=== PATIENT | female | born 1960 | race Caucasian/White ===

== ENCOUNTER 2024-12-21 10:11 | Outpatient (AMB) | payer BC, SELFPAY ==
--- NOTE | 2024-12-21 10:15 | MHC.OFFVIS ---
Intake Visit Reasons: 3m follow up Allergies No Known Allergies Allergy (Verified 11/07/24 06:03) Medication List - Last Reconciled 12/21/24 by Rosa Hendrickson MD clonazepam 0.5 mg PO DAILY hydrochlorothiazide 25 mg PO DAILY propranolol ER 60 mg PO BID semaglutide (weight loss) (Wegovy) mg subcut QWEEK HPI Comments Details: 64 years old woman with tremor. She is presenting with concerns about her worsening benign essential tremor. The tremor, which previously improved significantly with Inderal (propranolol), has increased in severity and distribution to involve her shoulders and hands once again. Switched to propranolol ER and metoprolol, these medications have not provided relief, resulting in worsened tremor control. Additional history reveals frequent headaches correlated with medication changes. She has experienced a notable rise in anxiety, likely exacerbated by her awareness of the tremor. The patient notes significant impacts on her professional responsibilities that require focused attention and mental acuity. Previously, trials with clonazepam and other anxiolytics provided minimal relief but with undesirable cognitive side effects. Her frustration extends to the insurance-driven discontinuation of Wegovy for weight management, complicating her obesity treatment. [facility] Medical History (Updated 12/21/24 @ 10:21 by Rosa Hendrickson MD) Cervical dystonia Benign essential tremor Review of Systems Const Details: - Musculoskeletal: Reports worsening tremor in hands and shoulders. - Neurological: Reports headaches. - Psychiatric: Reports increased anxiety. - Endocrine: Reports weight gain. Physical Exam Neuro Other: Mental Status: Alert and oriented to person, place, and time. Normal attention. Normal spontaneous speech, fluency, and comprehension. No obvious issues with mood and memory. Affect is appropriate. Cranial Nerves: CN II: Visual carroll full to confrontation, visual acuity intact. CN III, IV, : Pupils equal, round, reactive to light and accommodation. Extraocular movements are normal. CN V: Facial sensation is normal. CN VII: Facial movements symmetrical. CN VIII: Hearing intact to bedside conversation is normal. CN IX, X: Palate elevates symmetrically. CN XI: Shoulder shrug and head turn symmetrical. CN XII: Tongue midline without atrophy or fasciculations. Moderate head tremor and mild bilateral hand tremor. Speech: Normal; no dysarthria or tremor. Assessment & Plan Assessment & Plan (1) Benign essential tremor: Comment: Meds tried: Inderal, clonazepam, propranolol, metoprolol, topiramate Code(s): G25.0 - Essential tremor Category: Medical Plan Impression: Benign essential tremor Recommendations: . Propranolol extended-release 60 mg twice a day . Will try getting Inderal 60mg LA bid . If not, may try clonazepam at night again During the consultation, I discussed the patient?s tremor management, emphasizing a return to Inderal given its superior effectiveness. Despite insurance hurdles, we have submitted a request to resume this medication. We also reviewed the potential inclusion of clonazepam if necessary, with its benefits and autonomy in tremor control, although cognitive risks were thoroughly considered. Various less effective medications were reviewed and documented, making them necessary to challenge the insurer for appropriate therapy. Expectation and caution surrounding cognitive impairment with clonazepam, especially given occupational demands, were highlighted. The discussions extended to secondary problems of headaches and anxiety, primarily focusing on holistic tremor management. Anxiety management would be considered through improved symptom control. Regarding obesity, the constraints imposed by Wegovy termination were addressed, with a focus on lifestyle modifications. Procedural Botox injection options were mentioned, with the benefit of local arrangements as opposed to distant interventions. Follow-ups were affirmed, with a return appointment scheduled in three months. Medications: New propranolol ER (Inderal LA) 60 mg PO BID 180 caps 1RF Coding Level of Care Code Est Pt Level 4 (48422) Diagnoses Benign essential tremor G25.0
--- OUTSIDE RECORDS SUMMARY | 2024-12-21 12:26 | XMS_ITS | Clinical Summary ---
Author Organization [facility] Address [address] [place] [address] Phone Care Team Providers Care Call Center Analyst Name Role Phone Leonora Kay NP Primary Care Provider [phone] Allergies No known active allergies Medications propranolol (INDERAL) 60 MG immediate release tablet Take 60 mg by mouth 2 (two) times a day. Active hydroCHLOROthia zide (HYDRODIURIL) 25 MG tablet Take 25 mg by mouth daily. Active ALPRAZolam (XANAX) 0.5 MG tablet Take 0.5 mg by mouth nightly at bedtime as needed for sleep. Active Active Problems No known active problems Social History Tobacco Use Types Packs/Day Years Used Date Smoking Tobacco: Some Days Smokeless Tobacco: Current Education Answer Date Recorded Are you interested in more education? Not on katherin e 08/07/2022 Are you concerned about learning? Not on file 08/07/2022 No 08/07/2022 No 08/07/2022 Digital Access Answer Date Recorded No 09/05/2022 No 09/05/2022 No 09/05/2022 Reliable internet access at home? Not on file 09/05/2022 Device with a working camera? Not on file Comments Unknown Sex and Gender Information Value Date Recorded Sex Assigned at Not on file Legal Sex Female 2:29 PM EST Gender Identity Not on file Sexual Orientation Not on file Last Filed Vital Signs Vital Sign Reading Time Taken Comments Blood Pressure 122/80 12/29/2018 10:48 AM EDT Pulse 60 12/29/2018 10:48 AM EDT Temperature 36.6 C (97.9 F) 12/29/2018 10:48 AM EDT Respiratory Rate - - Oxygen Saturation 96% 12/29/2018 10: 48 AM EDT Inhaled Oxygen Concentration - - Weight 83.8 kg (184 lb 11.2 oz) 019 10:48 AM EDT Height 152.4 cm (5') 09/22/2018 10:40 AM EDT Body Mass Index 36.07 09/22/2018 10:40 AM EDT Plan of Treatment Health Maintenance Due Date Last Done Comments Adult Td,Tdap Booster 1961 LIPID PANEL 1961 POTASSIUM LEVEL 1961 DEPRESSION SCREENING 1973 SMOKING Hx and SMOKELESS TOBACCO SCREENING 1974 HEPATITIS C SCREENING 11/10/1979 HIV ONE-TIME SCREENING (18-6 5 YEARS) 11/10/1979 PNEUMOCOCCAL VACCINES (50+ years) (1 of 2 - PCV) 1980 PAP SMEAR 1982 MAMMOGRAM 2001 COLOGUARD 2006 COLONOSCOPY 2006 COLORECTAL CANCER SCREENING 2006 FIT TEST 2006 FOBT 2006 SIGMOIDOSCOPY 2006 VIRTUAL COLONOSCOPY 2006 ZOSTER VACCINES (1 of 2) 11/10/2011 INFLUENZA VACCINE (#1) 2024 06/05/2020 COVID-19 VACCINE (3 - 2024-2 6 season) 2024 04/24/2020, 04/01/2020 RSV VACCINE (1 - 1-dose 75+ series) 2036 HEPATITIS A VACCINES Aged Out No long er eligible based on patient's age to complete this topic HIB VACCINES Aged Out No longer eligi ble based on patient's age to complete this topic MENINGOCOCCAL VACCINES (ACWY) Aged Out No longer eligible based on patient's age to complete this topic MENINGOCOCCAL VACCINES (B) Aged Out N o longer eligible based on patient's age to complete this topic Medical Devices Not on file Insurance [employer] [place] [place] [id number] [place] [facility] [place] [id number] [place] [facility] PPO Member Subscriber Plan / Payer (Ef fective 2019-Present) Name:Ilana Ghosh Relation to Subscriber:Spouse Name:Damien Nettles Date of :1964 (Home) [address]: [address] [place], [place] [address] [address] Payer ID:[id number] ([employer]) Type:PPO Address: [address] [place], [place] OF STATE PPO Member Subscriber Plan / Payer (Ef fective 2019-Present) Name:Ilana Ghosh Relation to Subscriber:Spouse Name:Damien Nettles Date of :1964 (Home) Address: [address] [place] [id number] Payer ID:[id number] ([facility]) Type:PPO Address: [address] [place], [place] OUT OF STATE PPO Member Subscriber Plan / Payer (Ef fective 2019-Present) Name:Ilana Ghosh Relation to Subscriber:Spouse Name:Damien Nettles Date of :1964 (Home) Address: [address] [place] [id number] Payer ID:[id number] ([employer]) Type:PPO Address: [address] [place], [place] BL[place]OSS OUT OF STATE PPO [facility] OUT [facility] PPO [facility] OUT OF STATE PPO [facility] OUT OF STATE PPO Care Teams Call Center Analyst Relationship Specialty Start Date End Date Leonora Kay NP [address] [place] [address] [address] [place] [address] PCP - General Unknown Provider Specialty 06/10/18 Additional Source Comments The information contained in this document represents components of the legal health record. It is not the complete legal health record.[facility]
--- OUTSIDE RECORDS SUMMARY | 2024-12-21 12:26 | XMS_ITS | Encounter Summary ---
Author Organization [facility] Address [address] [facility] [address] [place] [address] Phone Care Team Providers Care Supervisor Refining Name Role Phone Leonora Kay NP Primary Care Provider [phone] Reason for Referral * Consultation (Elective) - Closed Specialty Diagnoses / Procedures Referred By Contac t Referred To Contact Neurology Diagnoses Essential tremor Leonora Kay NP Phone: tel: fax: [address] [address] Phone: tel: Referral ID Status Reason Start Date Expiration Date Visits Re quested Visits Authorized [id number] Closed 06/20/2018 06/21/2019 1 1 Encounter Details Date Type Department Care Team (Late st Contact Info) Description 06/20/2018 Transcribe Orders [facility] Department of Neurology [address] [place] [address], 8[address] Floor, [address] [place] [address] Leonora Kay NP [address] [facility] [address] [place] [address] Essential tremor (Primary Dx) Social History Tobacco Use Types Packs/Day Years Used Date Smoking Tobacco: Never Assessed Comments Unknown Sex and Gender Information Value Date Recorded Sex Assigned at Not on file Legal Sex Female 2:29 PM EST Gender Identity Not on file Sexual Orientation Not on file documented as of this encounter Plan of Treatment Scheduled Referrals Name Type Priority Associated Diagnoses Order Schedule Ambulatory referral to [facility] Neurology Outpatient Referral Routine Essential tremor Ordered: 06/20/2018 documented as of this encounter Visit Diagnoses Diagnosis Essential tremor- Primary documented in this encounter Care Teams Supervisor Refining Relationship Specialty Start Date End Date Leonora Kay NP [address] [facility] 1 [place] [address] PCP - General Unknown Provider Specialty 06/10/18 documented as of this encounter Additional Source Comments The information contained in this document represents components of the legal health record. It is not the complete legal health record.[facility]
--- OUTSIDE RECORDS SUMMARY | 2024-12-21 12:26 | XMS_ITS | Clinical Summary ---
Author Organization [facility] Address [address] [place] [address] Phone Care Team Providers Care Cold Roller Name Role Phone Leonora aKy NP Primary Care Provider [phone] Family History Medical History Relation Name Comments Breast cancer Mother Relation Name Status Comments Mother Social History Tobacco Use Types Packs/Day Years Used Date Smoking Tobacco: Never Assessed Comments No Sex and Gender Information Value Date Recorded Sex Assigned at Female 05/26/2024 1:47 PM EST Legal Sex Female 1:35 PM EDT Gender Identity Female 05/26/2024 1:47 PM EST Sexual Orientation Straight 05/26/2024 1: 47 PM EST Obstetrics History Para Term AB IAB SAB Ectopic Multiple Livin g Live Births 1 Last Filed Vital Signs Vital Sign Reading Time Taken Comments Blood Pressure - - Pulse - - Temperature - - Respiratory Rate - - Oxygen Saturation - - Inhaled Oxygen Concentration - - Weight 77.1 kg (170 lb) 06/01/2024 3:27 PM EST Height 154.9 cm (5' 1 ) 06/01/2024 3:27 PM EST Body Mass Index 32.12 06/01/2024 3:27 PM EST Plan of Treatment Health Maintenance Due Date Last Done Comments DTaP,Tdap,and Td Vaccines (1 - Tdap) 1980 Cervical Cancer Screening: P ap Smear 1982 Pneumococcal Vaccine: 50+ Years (1 of 1 - PCV) 11/10/2011 Zoster Vaccines (1 of 2) 11/10/2011 Colorectal Cancer Screening: Colonoscopy 11/12/2023 HIV Screening 11/12/2023 Hepatitis C Screening 11/12/2023 Social Influencers of Health Screening 11/12/2023 Depression Screening 04/12/2024 COVID-19 Vaccine (3 - 2024-2 6 season) 2024 04/24/2020, 04/01/2020 Influenza Vaccine (#1) 2024 06/05/2020 Breast Cancer Screening 06/01/2026 06/01/2024 RSV Immunization Adult Patients (1 - 1-dose 75+ series) 2036 HIB Vaccines Aged Out No longer eligi ble based on patient's age to complete this topic HPV Vaccines Aged Out No longer eligi ble based on patient's age to complete this topic Hepatitis A Vaccines Aged Out No long er eligible based on patient's age to complete this topic Hepatitis B Vaccines Aged Out No long er eligible based on patient's age to complete this topic IPV Vaccines Aged Out No longer eligi ble based on patient's age to complete this topic MMR Vaccines Aged Out No longer eligi ble based on patient's age to complete this topic Meningococcal ACWY Vaccine Aged Out N o longer eligible based on patient's age to complete this topic Meningococcal B Vaccine Aged Out No l onger eligible based on patient's age to complete this topic RSV Immunization Patients Under 20 months Aged Out No longer eligible b ased on patient's age to complete this topic Varicella Vaccines Aged Out No longer eligible based on patient's age to complete this topic Procedures Procedure Name Priority Date/Time Associated Diagnosis Comments MG MAMMO DIGITAL SCREENING W XIOMARA BILAT Routine 06/01/2024 3:43 PM EST Encounter for screening mammogram for malignant neoplasm of breast from Last 3 Months or Most Recently Relevant to Health Maintenance Results * MG Mammo Digital Screening w Xiomara bilat (06/01/2024 3:43 PM EST) Anatomical Region Laterality Modality Breast Bilateral Mammography 06/21/2024 4:23 PM EDT Impressions 06/21/2024 4:32 PM EDT No mammographic evidence of malignancy. No suspicious interval change. A negative mammogram in the presence of a clinically suspicious palpable abnormality does not preclude the possibility of malignancy or alter the indications for biopsy. ASSESSMENT: BI-RADS 1: NEGATIVE RECOMMENDATION(S): 1: Routine screening mammogram BILATERAL in 1 year. [facility] location[facility] [address], [address] -------- FINAL REPORT -------- Dictated By: Tarun Clements Dictated Date: 06/21/2024 16:23 ET Assigned Physician: Tarun Clements Reviewed and Electronically Signed By: Tarun Clements Signed Date: 06/21/2024 16:32 ET Workstation ID: [id number] Transcribed By: Self Edit Transcribed Date: 06/21/2024 16:23 ET Narrative 06/21/2024 4:32 PM EDT EXAM: SCREENING MAMMOGRAPHY, BILATERAL HISTORY: SCREENING. Mother diagnosed with breast cancer in her 70's. COMPARISON: 06/14/2018, 11/20/2015, 08/23/2012 TECHNIQUE: Synthesized CC and MLO projections of each breast. Tomosynthesis of each breast in the CC and MLO projections. ADDITIONAL IMAGING: None Computer-aided detection was employed with the [employer] AI 3-D. TISSUE DENSITY: There are scattered areas of fibroglandular density. (BI-RADS category B) FINDINGS: RIGHT BREAST: No suspicious mass. No suspicious calcification. No distortion. No additional suspicious right breast findings LEFT BREAST: No suspicious mass. No suspicious calcification. No distortion. No additional suspicious left breast findings Procedure Note Tarun Clements MD - 06/21/2024 EXAM: SCREENING MAMMOGRAPHY, BILATERAL HISTORY: SCREENING. Mother diagnosed with breast cancer in her 70's. COMPARISON: 06/14/2018, 11/20/2015, 08/23/2012 TECHNIQUE: Synthesized CC and MLO projections of each breast.Tomosynthesis of each breast in the CC and MLO projections. ADDITIONAL IMAGING: None Computer-aided detection was employed with the [employer] AI 3-D. TISSUE DENSITY: There are scattered areas of fibroglandular density.(BI-RADS category B) FINDINGS: RIGHT BREAST: No suspicious mass. No suspicious calcification. No distortion. Noadditional suspicious right breast findings LEFT BREAST: No suspicious mass. No suspicious calcification. No distortion. Noadditional suspicious left breast findings IMPRESSION: No mammographic evidence of malignancy. No suspicious interval change. A negative mammogram in the presence of a clinically suspicious palpableabnormality does not preclude the possibility of malignancy or alter theindications for biopsy. ASSESSMENT: BI-RADS 1: NEGATIVE RECOMMENDATION(S): 1: Routine screening mammogram BILATERAL in 1 year. [facility]amm[facility] location[facility] [address], [address] -------- FINAL REPORT -------- Dictated By: Tarun Clements Dictated Date: 06/21/2024 16:23 ET Assigned Physician: Tarun Clements Reviewed and Electronically Signed By: Tarun Clements Signed Date: 06/21/2024 16:32 ET Workstation ID: [id number] Transcribed By: Self Edit Transcribed Date: 06/21/2024 16:23 ET Leonora Kay NP IMG BI PROCEDURES Final Result from Last 3 Months or Most Recently Relevant to Health Maintenance Insurance [facility] ([facility]) Care Teams Cold Roller Relationship Specialty Start Date End Date Leonora Kay NP [address] [place] [address] [address] [place], [place] PCP - General Nurse Practitioner 05/26/24
== END 2024-12-21 10:26 | disposition home or self-care (01) ==
LOC: HO.HSM 10:12
PROVIDERS: PCP Internal Medicine; Visit Provider Psychiatry & Neurology Neurology
DX: G25.0 Essential tremor (principal)
CPT/HCPCS: 99214

== ENCOUNTER 2025-03-26 16:09 | Outpatient (AMB) | payer BC, SELFPAY ==
--- NOTE | 2025-03-26 16:21 | MHC.OFFVIS ---
Intake Visit Reasons: 3m Allergies No Known Allergies Allergy (Verified 11/07/24 06:03) Medication List - Last Reconciled 03/26/25 by Rosa Hendrickson MD clonazepam 0.5 mg PO DAILY hydrochlorothiazide 25 mg PO DAILY propranolol ER (Inderal LA) 60 mg PO BID propranolol ER 60 mg PO BID semaglutide (weight loss) (Wegovy) mg subcut QWEEK HPI Comments Details: 64 years old woman with tremor. She is presenting for a follow-up visit for medication management. She reports feeling much better on her current treatment regimen. Her current medications include Inderal 60 mg twice daily, Wegovy, and hydrochlorothiazide. She also has a prescription for clonazepam, which she uses infrequently for stressful events, such as when her [id number] . In terms of social history, she started a new job three months ago that she finds stressful. She is awaiting an offer for early penitentiary. [facility] Medical History (Updated 12/21/24 @ 10:21 by Rosa Hendrickson MD) Cervical dystonia Benign essential tremor Review of Systems Narrative - Constitutional: Reports feeling much better. - Psychiatric: Reports stress related to a new job. Physical Exam Neuro Other: Mental Status: Alert and oriented to person, place, and time. Normal attention. Normal spontaneous speech, fluency, and comprehension. Cranial Nerves: CN II: Visual carroll full to confrontation, visual acuity intact. CN III, IV, : Pupils equal, round, reactive to light and accommodation. Extraocular movements are normal. CN V: Facial sensation is normal. CN VII: Facial movements symmetrical. CN VIII: Hearing intact to bedside conversation is normal. CN IX, X: Palate elevates symmetrically. CN XI: Shoulder shrug and head turn symmetrical. CN XII: Tongue midline without atrophy or fasciculations. Extrapyramidal: Full facial expressions and blinking. No rigidity. Movements are appropriate with no tremor or abnormality. Speech: Normal; no dysarthria or tremor. Assessment & Plan Assessment & Plan (1) Benign essential tremor: Comment: Meds tried: Inderal, clonazepam, propranolol, metoprolol, topiramate Code(s): G25.0 - Essential tremor Category: Medical Plan Impression: Benign essential tremor Recommendations: Propranolol extended-release 60 mg twice a day, which has been working well for her without side-effects. I spoke with the patient about her current medication plan. She is doing well and reports feeling much better. We will continue her current regimen, including Inderal 60 mg BID, for which I am providing a refill. We discussed her infrequent use of clonazepam for stress, which is appropriate. I advised her to return for a follow-up visit in one year. Medications: Refilled propranolol ER (Inderal LA) 60 mg PO BID 180 caps 1RF Coding Level of Care Code Est Pt Level 3 (57994) Diagnoses Benign essential tremor G25.0
--- OUTSIDE RECORDS SUMMARY | 2025-03-26 22:27 | XMS_ITS | Encounter Summary ---
Author Organization [facility] Address [address] [facility] [address] [place] [address] Phone Care Team Providers Care Client Services Manager Name Role Phone Leonora Kay NP Primary Care Provider [phone] Reason for Referral * Consultation (Elective) - Closed Specialty Diagnoses / Procedures Referred By Contac t Referred To Contact Neurology Diagnoses Essential tremor Leonora Kay NP Phone: tel: fax: [address] [address] Phone: tel: Referral ID Status Reason Start Date Expiration Date Visits Re quested Visits Authorized [id number] Closed 06/20/2018 06/21/2019 1 1 Encounter Details Date Type Department Care Team (Late st Contact Info) Description 06/20/2018 Transcribe Orders [facility] Department of Neurology [address] [place] [address], 8[address] Floor, [address] [place] [address] Leonora Kay NP [address] [facility] [address] [place] [address] Essential tremor (Primary Dx) Social History Tobacco [...] Associated Diagnoses Order Schedule Ambulatory referral to [facility] Neurology Outpatient Referral Routine Essential tremor Ordered: 06/20/2018 documented as of this encounter Visit Diagnoses Diagnosis Essential tremor- Primary documented in this encounter Care Teams Client Services Manager Relationship Specialty Start Date End Date Leonora Kay NP [address] [facility] 1 [place] [address] PCP - General Unknown Provider Specialty 06/10/18 documented as of this encounter Additional Source Comments The information contained in this document represents components of the legal health record. It is not the complete legal health record.[facility]
--- OUTSIDE RECORDS SUMMARY | 2025-03-26 22:27 | XMS_ITS | Patient Health Record ---
Author Organization [facility] Address [address] [facility] [address] [place] [address] Support Name Relationship Address Phone DANISALEXJEAN Guarantor Unknown [phone] Reason For Referral No Information Medications Medication SIG (Take, Route, Fr equency, Duration) Notes Start Date End Date Status miSOPROStol 200MCG 2 ORAL NIGHT BEFORE PROCEDURE; Duration: -3 Jayant- 01/25/2012 Active Inderal LA 1 ORAL daily; Duration: -3 Jayant- 01/25/2012 Active Topamax 1 ORAL twice daily; Duration: -3 Jayant- 01/25/2012 Active Chantix 0.5MG 1 ORAL twice daily; Duration: -3 Jayant- 01/25/2012 Active hydroCHLOROthiazide 1 ORAL daily; Duration: -3 Jayant- Active Problems Problem Type SNOMED Code ICD Code Onset Dates Problem Status W/U Status Risk Notes Problem Excessive and frequent menstruation (074879253) Excessive or frequent menstruation (626.2) Active confirmed Major Plan Of Treatment No Information Insurance Providers Payer Name Payer Address Payer Phone Subscriber Number Group Number Insured Name Patient Relationship to Insured Coverage Start Date Coverage End Date [employer] [address] [place] [address] [id number] JEAN MOSCOSO Self - patient is the insured
--- OUTSIDE RECORDS SUMMARY | 2025-03-26 22:27 | XMS_ITS | Clinical Summary ---
Author Organization [facility] Address [address] [place] [address] Phone Care Team Providers Care Casualty Insurance Claim Adjuster Name Role Phone RahulPedrolois BATCH TESTER Primary Care Provider [phone] Allergies No known active allergies Medications hydroCHLOROthiaz alba (HYDRODIURIL) 25 mg tablet Take 1 tablet (25 mg total) by mouth 1 (one) time each day. Active propranoloL (INDERAL) 60 mg tablet Take 1 tablet (60 mg total) by mouth 2 times daily. Active tirzepatide (Mounjaro) 10 mg/0.5 mL injection Inject 0.5 mL (10 mg total) under the skin every 7 (seven) days. Active Encounters Date Type Department Care Team Description 02/22/2025 Telephone Gastroenterology - [facility] [address] [place] [address] Kymberly Herrera MD from Last 3 Months Family History Medical History Relation Name Comments [...] Health Maintenance Due Date Last Done Comments Colorectal Cancer Screening: Colonoscopy 1961 DTaP,Tdap,and Td Vaccines (1 - Tdap) 1980 Cervical Cancer Screening: P ap Smear 1982 Pneumococcal Vaccine: 50+ Years (1 of 1 - PCV) 11/10/2011 Zoster Vaccines (1 of 2) 11/10/2011 HIV Screening 11/12/2023 Hepatitis C Screening 11/12/2023 [...] year. [facility]amm[facility] [address], [address] -------- FINAL REPORT -------- Dictated By: Tarun Clements Dictated Date: 06/21/2024 16:23 ET Assigned Physician: Tarun Clements Reviewed and Electronically Signed By: Tarun Clements Signed Date: 06/21/2024 16:32 ET Workstation ID: [id number] Transcribed By: Self Edit Transcribed Date: 06/21/2024 16:23 ET Narrative 06/21/2024 4:32 PM EDT EXAM: SCREENING MAMMOGRAPHY, BILATERAL HISTORY: SCREENING. Mother diagnosed with breast cancer in her 70's. COMPARISON: 06/14/2018, 11/20/2015, 08/23/2012 TECHNIQUE: Synthesized CC and MLO projections of each breast. Tomosynthesis of each breast in the CC and MLO projections. ADDITIONAL IMAGING: None Computer-aided detection was employed with the Soxiable AI 3-D. TISSUE DENSITY: There are scattered [...] None Computer-aided detection was employed with the iCAD ProFound AI 3-D. TISSUE DENSITY: There are scattered [...] year. Mamm[facility] location: [facility] at [address], [address] -------- FINAL REPORT -------- Dictated By: Tarun Clements Dictated Date: 06/21/2024 16:23 ET Assigned Physician: Tarun Clements Reviewed and Electronically Signed By: Tarun Clements Signed Date: 06/21/2024 16:32 ET Workstation ID: [id number] Transcribed By: Self Edit Transcribed Date: 06/21/2024 16:23 ET Leonora Kay NP IMG BI PROCEDURES Final Result from Last 3 Months or Most Recently Relevant to Health Maintenance Insurance [facility]) Care Teams Casualty Insurance Claim Adjuster Relationship Specialty Start Date End Date Leonora Kay NP [address] [place] [address] [address] [place], [place] PCP - General Nurse Practitioner 05/26/24
--- OUTSIDE RECORDS SUMMARY | 2025-03-26 22:27 | XMS_ITS | Clinical Summary ---
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 Role Phone Leonora Kay NP Primary Care Provider [phone] Allergies No known active allergies Medications propranolol [...] [place] [address] [address] CROSS OUT OF [facility] [address] [address] CROSS OUT OF [facility] PPO Member Subscriber Plan / Payer (Ef fective 2019-Present) Name:Ilana Ghosh Relation to Subscriber:Spouse Name:Damien Nettles Date of :1964 (Home) Address: [address] [place], [place] [address] [address] Payer ID:[id number] ([employer]) Type:PPO Address: [address] [place], [place] BLUE CROSS OUT OF STATE PPO Member Subscriber Plan / Payer (Ef fective 2019-Present) Name:Ialna Ghosh Relation to Subscriber:Spouse Name:Damien Nettles Date of :1964 (Home) Address: [address] [place] [id number] Payer ID:[id number] ([facility]) Type:PPO Address: [address] [place], [place] BLUE CROSS OUT OF STATE PPO Member Subscriber Plan / Payer (Ef fective 2019-Present) Name:Ilana Ghosh Relation to Subscriber:Spouse Name:Damien Nettles Date of :1964 (Home) Address: [address] [place] [phone] Payer ID:[id number] ([employer]) Type:PPO Address: [address] [place], [place] BLUE CROSS OUT OF STATE PPO [facility] OUT [facility] PPO [facility] OUT OF STATE PPO [facility] OUT OF STATE PPO Care Teams Cylinder Die Machine Operator Relationship Specialty Start Date End Date Leonora Kay NP [address] [place] [address] [address] [place] [address] PCP - General Unknown Provider Specialty 06/10/18 Additional Source Comments The information contained in this document represents components of the legal health record. It is not the complete legal health record.[facility]
== END 2025-03-26 16:25 | disposition home or self-care (01) ==
LOC: HO.HSM 16:10
PROVIDERS: PCP Internal Medicine; Visit Provider Psychiatry & Neurology Neurology
DX: G25.0 Essential tremor (principal)
CPT/HCPCS: 99213